=== PATIENT | female | born 1995 | race Caucasian/White ===

== ENCOUNTER 2017-06-11 10:21 | Emergency (ER) | payer OTHER ==
[~2017-06-11] VITALS: Wt 61.0 kg
[2017-06-11 11:01] LABS: URINE BLOOD (Dip) POC Negative (NEGATIVE)
[2017-06-11] MEDS ORDERED: CEPH-443 PO (11:15)
[2017-06-11] MEDS ORDERED: PHEN-538 PO (11:15)
--- NOTE | 2017-06-11 11:24 | ERD ---
ER Documentation Chief Complaint Date/Time DATE: 06/11/17 TIME: 11:17 Chief Complaint dysuria today HPI 21-year-old female presents with dysuria since this morning. She has a history of UTI in the past and it feels similar although she came in earlier today. She denies fevers, vomiting, flank pain. She has mild suprapubic pain. She denies any vaginal discharge and denies . ROS All systems reviewed and are negative except as per history of present illness. Medications Home Meds Active Scripts Phenazopyridine Hcl* (Pyridium*) 200 Mg Tab, 200 MG PO TID Y for URINARY PAIN, # 6 TAB Prov:BARRINGTON TINAJERO MD 06/11/17 Cephalexin* (Keflex*) 500 Mg Capsule, 500 MG PO QID for 5 Days, CAP Prov:BARRINGTON TINAJERO MD 06/11/17 Allergies Allergies: Coded Allergies: No Known Drug Allergy (Verified Allergy, Unknown, 11/29/15) PMhx/Soc History of Surgery: No Anesthesia Reaction: No Hx Neurological Disorder: No Hx Respiratory Disorders: No Hx Cardiac Disorders: No Hx Psychiatric Problems: No Hx Alcohol Use: Yes (WINE,BEER) Hx Substance Use: No Hx Tobacco Use: No Physical Exam Vitals Vital Signs Date Time Temp Pulse Resp B/P Pulse Ox O2 Delivery O2 Flow Rate FiO2 06/11/17 10:34 98.1 87 18 118/83 99 Physical Exam Const: [] Pleasant, [id number]. Head: Atraumatic Eyes: Normal Conjunctiva ENT: Normal External Ears, Nose and Mouth. Neck: Full range of motion..~ No meningismus. Resp: Clear to auscultation bilaterally Cardio: Regular rate and rhythm, no murmurs Abd: Soft, minimal suprapubic tenderness. No tenderness at McBurney's point no Rowley sign. No rebound. non distended. Normal bowel sounds Skin: No petechiae or rashes Back: No midline or flank tenderness Ext: No cyanosis, or edema Neur: Awake and alert Psych: Normal Mood and Affect Results 24 hrs Laboratory Tests Test 06/11/17 11:09 Bedside Urine pH (LAB) 7.0 Bedside Urine Protein (LAB) Negative Bedside Urine Glucose (UA) Negative Bedside Urine Ketones (LAB) Negative Bedside Urine Blood Negative Bedside Urine Nitrite (LAB) Negative Bedside Urine Leukocyte Esterase (L Trace Current Medications Medications (Trade) Dose Ordered Sig/Ivet Route PRN Reason Start Time Stop Time Status Last Admin Dose Admin Cephalexin (Keflex) 500 mg ONCE ONCE PO 06/11/17 11:30 06/11/17 11:31 UNV Phenazopyridine HCl (Pyridium) 200 mg ONCE ONCE PO 06/11/17 11:30 06/11/17 11:31 UNV Procedures/MDM HCG is negative and urine shows trace leukocytes. Patient was given Keflex 500 mg of mouth. Patient presents with dysuria since this morning with current signs or symptoms do not suggest PID, tubo-ovarian abscess, appendicitis, acute abdomen, appendicitis or sepsis. She will be treated with Keflex and instructions for fluids and observation and return precautions and primary care follow-up. The patient was stable with no new complaints during the ER course. Clinically, there is no current evidence to suggest meningitis, sepsis, acute abdomen, pneumonia, acute coronary syndrome, pulmonary embolism, or any other emergent condition appearing to require further evaluation or hospitalization. The patient should certainly return for any new or worsening symptoms per the aftercare instructions. They should otherwise follow-up with her primary care doctor for reevaluation this week. Departure Diagnosis: Primary Impression: Dysuria Condition: Stable Patient Instructions: Urinary Tract Infections in Women Additional Instructions: Shows mild infection. Drink plenty of fluids at home. Recheck for new or worsening symptoms or primary care doctor. BARRINGTON TINAJERO MD Jun 11, 2017 11:18
[2017-06-11] MEDS ORDERED: PHENAZOPYRIDINE 100 MG TAB PO ONE (11:30)
[2017-06-11] MEDS ORDERED: CEPHALEXIN 500 MG CAP PO ONE (11:30)
== END 2017-06-11 11:35 | disposition home or self-care (01) ==
LOC: FTE 10:21
DX: R30.0 Dysuria (principal)
CPT/HCPCS: 81003; Z7502; Z7610; 99283

== ENCOUNTER 2018-10-29 10:46 | Emergency (ER) | payer OTHER ==
[~2018-10-29] VITALS: Ht 165.1 cm; Wt 64.9 kg
[~2018-10-29 10:46] MED LIST: CEPH-443 PO; PHEN-538 PO
[2018-10-29 10:52] VITALS: BP 136/60; PULSE 80; RESP 18; Ht 165.1 cm; Wt 64.9 kg
[2018-10-29] MEDS ORDERED: SOD CHLORIDE 0.9% 1,000 ML IV STA (11:49)
[2018-10-29] MEDS ORDERED: ONDANSETRON 4 MG INJ IV STA (11:49)
[2018-10-29] MEDS ORDERED: ONDA4TAB14 PO (13:32)
--- NOTE | 2018-10-29 15:54 | ERD ---
ER Documentation Chief Complaint Chief Complaint vomiting, 11 weeks . HPI 23-year-old female presenting with vomiting this worsened over the last 3 days. Patient is 11 weeks and LNMP was August 10. She is been taking Zofran but states that her vomiting has increased. Denies any severe abdominal pain or cramping. Denies any vaginal bleeding. Next OB appointment is tomorrow at [facility]. . Denies other medical problems. NKDA. Surgical history denies. Social history denies ROS All systems reviewed and are negative except as per history of present illness. Medications Home Meds Active Scripts Ondansetron (Ondansetron Odt) 4 Mg Tab.rapdis, 4 MG PO Q6H PRN for NAUSEA AND/OR VOMITING, #10 TAB Prov:AIDA BISHOP PA-C 10/29/18 Phenazopyridine Hcl* (Pyridium*) 200 Mg Tab, 200 MG PO TID PRN for URINARY PAIN, #6 TAB Prov:BARRINGTON TINAJERO MD 06/11/17 Cephalexin* (Keflex*) 500 Mg Capsule, 500 MG PO QID for 5 Days, CAP Prov:BARRINGTON TINAJERO MD 06/11/17 Allergies Allergies: Coded Allergies: No Known Drug Allergy (Verified Allergy, Unknown, 11/29/15) PMhx/Soc Medical and Surgical Hx: pt denies Medical Hx, pt denies Surgical Hx History of Surgery: No Anesthesia Reaction: No Hx Neurological Disorder: No Hx Respiratory Disorders: No Hx Cardiac Disorders: No Hx Psychiatric Problems: No Hx Miscellaneous Medical Probl: Yes (preg 11 weeks) Hx Alcohol Use: No (quit august) Hx Substance Use: No Hx Tobacco Use: No Smoking Status: Never smoker FmHx Family History: No diabetes, No coronary disease, No other Physical Exam Vitals Vital Signs Date Temp Pulse Resp B/P (MAP) Pulse Ox O2 O2 Flow FiO2 Time Delivery Rate 10/29/18 98.0 80 18 136/60 98 10:52 (85) Physical Exam GENERAL: The patient is well-appearing, well-nourished, in no acute distress HEENT: Atraumatic. Conjunctivae are pink. Pupils equal, round, and reactive to light. There is no scleral icterus. Tympanic membranes clear bilaterally. Oropharynx clear. CHEST: Clear to auscultation bilaterally. There are no rales, wheezes or rhonchi. HEART: Regular rate and rhythm. No murmurs, clicks, rubs or gallops. ABDOMEN:Soft, nontender and nondistended. Good bowel sounds. No rebound or guarding. No gross peritonitis. No gross organomegaly or masses. Result Diagram: 10/29/18 1206 10/29/18 1206 Results 24 hrs Laboratory Tests Test 10/29/18 12:06 10/29/18 12:18 White Blood Count 7.8 10^3/ul Red Blood Count 4.49 10^6/ul Hemoglobin 13.7 g/dl Hematocrit 39.9 % Mean Corpuscular Volume 88.9 fl Mean Corpuscular Hemoglobin 30.5 pg Mean Corpuscular Hemoglobin Concent 34.3 g/dl Red Cell Distribution Width 12.1 % Platelet Count 235 10^3/UL Mean Platelet Volume 10.5 fl Immature Granulocytes % 0.300 % Neutrophils % 69.6 % Lymphocytes % 23.7 % Monocytes % 5.5 % Eosinophils % 0.4 % Basophils % 0.5 % Nucleated Red Blood Cells % 0.0 /100WBC Immature Granulocytes # 0.020 10^3/ul Neutrophils # 5.4 10^3/ul Lymphocytes # 1.8 10^3/ul Monocytes # 0.4 10^3/ul Eosinophils # 0.0 10^3/ul Basophils # 0.0 10^3/ul Nucleated Red Blood Cells # 0.0 10^3/ul Sodium Level 140 mmol/L Potassium Level 3.6 mmol/L Chloride Level 103 mmol/L Carbon Dioxide Level 28 mmol/L Anion Gap 9 Blood Urea Nitrogen 6 mg/dl Creatinine 0.52 mg/dl Est Glomerular Filtrat Rate mL/min > 60 mL/min Glucose Level 82 mg/dl Calcium Level 9.6 mg/dl Total Bilirubin 0.3 mg/dl Direct Bilirubin 0.00 mg/dl Indirect Bilirubin 0.3 mg/dl Aspartate Amino Transf (AST/SGOT) 20 IU/L Alanine Aminotransferase (ALT/SGPT) 12 IU/L Alkaline Phosphatase 64 IU/L Total Protein 7.9 g/dl Albumin 4.4 g/dl Globulin 3.50 g/dl Albumin/Globulin Ratio 1.25 Serum HCG, Qualitative POSITIVE Bedside Urine pH (LAB) 7.5 Bedside Urine Protein (LAB) 1+ Bedside Urine Glucose (UA) Negative Bedside Urine Ketones (LAB) 2+ Bedside Urine Blood Negative Bedside Urine Nitrite (LAB) Negative Bedside Urine Leukocyte Esterase (L Trace Current Medications Medications Dose Sig/Ivet Start Time Status Last (Trade) Ordered Route PRN Stop Time Admin Dose Reason Admin Sodium 1,000 ml @ Q1H STAT 10/29/18 DC 10/29/18 Chloride 1,000 mls/hr IV 11:49 12:08 10/29/18 12:48 Ondansetron 4 mg ONCE STAT 10/29/18 DC 10/29/18 HCl (Zofran IV 11:49 12:07 Inj) 10/29/18 11:50 Procedures/MDM ER course: 1 L normal saline given via IV and IV Zofran given. Patient is tolerating p.o.'s. Blood work within normal ranges. MDM: 23-year-old female presenting with vomiting. I will suspicion for dehydration. I have low suspicion for acute abdominal emergency. I have low suspicion for complication due to . Patient is discharged with supportive medications and told to follow-up with primary care within 1-2 days for close evaluation. Patient is told symptoms change or worsen to return immediately to the ER. All questions answered at discharge Departure Diagnosis: Primary Impression: Nausea and vomiting Condition: Stable Patient Instructions: Nausea and Vomiting-Adult Referrals: [facility] YOU HAVE RECEIVED A MEDICAL SCREENING EXAM AND THE RESULTS INDICATE THAT YOU DO NOT HAVE A CONDITION THAT REQUIRES URGENT TREATMENT IN THE EMERGENCY DEPARTMENT. FURTHER EVALUATION AND TREATMENT OF YOUR CONDITION CAN WAIT UNTIL YOU ARE SEEN IN YOUR DOCTORS OFFICE WITHIN THE NEXT 1-2 DAYS. IT IS YOUR RESPONSIBILITY TO MAKE AN APPOINTMENT FOR FOLOW-UP CARE. IF YOU HAVE A PRIMARY DOCTOR --you should call your primary doctor and schedule an appointment IF YOU DO NOT HAVE A PRIMARY DOCTOR YOU CAN CALL OUR PHYSICIAN REFERRAL HOTLINE AT IF YOU CAN NOT AFFORD TO SEE A PHYSICIAN YOU CAN CHOSE FROM THE FOLLOWING [facility] [address] [facility] [address] [facility] [address] [facility] [address] [facility]. [facility] [address] [facility]. [facility] [address] Additional Instructions: FOLLOW UP WITH YOUR PRIMARY CARE PHYSICIAN TOMORROW.Return to this facility if you are not improving as expected. AIDA BISHOP PA-C Oct 29, 2018 15:54
== END 2018-10-29 13:53 | disposition home or self-care (01) ==
LOC: FTE 10:46
DX: O21.9 Vomiting of pregnancy, unspecified (principal); Z3A.11 11 weeks gestation of pregnancy
CPT/HCPCS: 36415; 80053; 81003; 84703; 85025; 96374; J2405; J7030; Z7502

== ENCOUNTER 2018-11-21 09:39 | Emergency (ER) | payer OTHER ==
[~2018-11-21] VITALS: Ht 160 cm; Wt 63.9 kg
[~2018-11-21 09:39] MED LIST changes: +ONDA4TAB14 PO
[2018-11-21 09:41] VITALS: Ht 160 cm; Wt 63.9 kg
[2018-11-21] MEDS ORDERED: ONDANSETRON 4 MG INJ IV STA (09:57)
[2018-11-21] MEDS ORDERED: SOD CHLORIDE 0.9% 1,000 ML IV STA (09:57)
[2018-11-21] MEDS ORDERED: ONDA4TAB14 PO (10:42)
[2018-11-21 10:54] VITALS: BP 122/74; PULSE 87; RESP 18
--- NOTE | 2018-11-21 11:14 | ERD ---
ER Documentation Chief Complaint Chief Complaint VOMITTING ; BURNING PAIN EPIGASTRIC AREA; - LMP - 08/10/2018 HPI 23-year-old female presenting with vomiting and epigastric pain. Patient is about 14 weeks . LNMP August 10, 2018. A0. Denies any pelvic pain or bleeding. Patient is being seen by Dr. Palacio at [facility]. Denies medical problems. NKDA. Surgical history denies. Social histo ry denies ROS All systems reviewed and are negative except as per history of present illness. Medications Home Meds Active Scripts Ondansetron (Ondansetron Odt) 4 Mg Tab.rapdis, 4 MG PO Q6H PRN for NAUSEA AND/OR VOMITING, #10 TAB Prov:AIDA BISHOP PA-C 11/21/18 Ondansetron (Ondansetron Odt) 4 Mg Tab.rapdis, 4 MG PO Q6H PRN for NAUSEA AND/OR VOMITING, #10 TAB Prov:AIDA BISHOP PA-C 10/29/18 Phenazopyridine Hcl* (Pyridium*) 200 Mg Tab, 200 MG PO TID PRN for URINARY PAIN, #6 TAB Prov:BARRINGTON TINAJERO MD 06/11/17 Cephalexin* (Keflex*) 500 Mg Capsule, 500 MG PO QID for 5 Days, CAP Prov:BARRINGTON TINAJERO MD 06/11/17 Allergies Allergies: Coded Allergies: No Known Drug Allergy (Verified Allergy, Unknown, 11/21/18) PMhx/Soc History of Surgery: No Anesthesia Reaction: No Hx Neurological Disorder: No Hx Respiratory Disorders: No Hx Cardiac Disorders: No Hx Psychiatric Problems: No Hx Miscellaneous Medical Probl: No Hx Alcohol Use: Yes (quit august) Hx Substance Use: No Hx Tobacco Use: No Smoking Status: Never smoker FmHx Family History: No diabetes, No coronary disease, No other Physical Exam Vitals Vital Signs Date Temp Pulse Resp B/P (MAP) Pulse Ox O2 O2 Flow FiO2 Time Delivery Rate 11/21/18 98.0 87 18 122/74 98 Room Air 10:54 (90) 11/21/18 98.0 98 18 128/83 96 09:41 (98) Physical Exam GENERAL: The patient is well-appearing, well-nourished, in no acute distress HEENT: Atraumatic. Conjunctivae are pink. Pupils equal, round, and reactive to light. There is no scleral icterus. Tympanic membranes clear bilaterally. Oropharynx clear. NECK: C-spine is soft and supple. There is no meningismus. There is no cervical lymphadenopathy. CHEST: Clear to auscultation bilaterally. There are no rales, wheezes or rhonchi. HEART: Regular rate and rhythm. No murmurs, clicks, rubs or gallops. ABDOMEN: Normal active bowel sounds. No distention. No organomegaly. Mild tenderness palpation in the epigastric region. No rebound tenderness. Result Diagram: 11/21/18 1005 11/21/18 1005 Results 24 hrs Laboratory Tests Test 11/21/18 10:00 11/21/18 10:05 Urine Color YELLOW Urine Clarity HAZY Urine pH 5.0 Urine Specific [place] 1.030 Urine Ketones 2+ mg/dL Urine Nitrite NEGATIVE mg/dL Urine Bilirubin 1+ mg/dL Urine Urobilinogen 0.2 E.U./dL mg/dL Urine Leukocyte Esterase NEGATIVE Radha/ul Urine Hemoglobin NEGATIVE mg/dL Urine Glucose NEGATIVE mg/dL Urine Total Protein NEGATIVE mg/dl White Blood Count 9.8 10^3/ul Red Blood Count 4.33 10^6/ul Hemoglobin 13.1 g/dl Hematocrit 38.7 % Mean Corpuscular Volume 89.4 fl Mean Corpuscular Hemoglobin 30.3 pg Mean Corpuscular Hemoglobin Concent 33.9 g/dl Red Cell Distribution Width 12.4 % Platelet Count 220 10^3/UL Mean Platelet Volume 10.4 fl Immature Granulocytes % 0.400 % Neutrophils % 78.4 % Lymphocytes % 16.0 % Monocytes % 4.5 % Eosinophils % 0.4 % Basophils % 0.3 % Nucleated Red Blood Cells % 0.0 /100WBC Immature Granulocytes # 0.040 10^3/ul Neutrophils # 7.6 10^3/ul Lymphocytes # 1.6 10^3/ul Monocytes # 0.4 10^3/ul Eosinophils # 0.0 10^3/ul Basophils # 0.0 10^3/ul Nucleated Red Blood Cells # 0.0 10^3/ul Sodium Level 141 mmol/L Potassium Level 3.7 mmol/L Chloride Level 106 mmol/L Carbon Dioxide Level 24 mmol/L Anion Gap 11 Blood Urea Nitrogen 7 mg/dl Creatinine 0.56 mg/dl Est Glomerular Filtrat Rate mL/min > 60 mL/min Glucose Level 81 mg/dl Calcium Level 9.6 mg/dl Total Bilirubin 0.5 mg/dl Direct Bilirubin 0.00 mg/dl Indirect Bilirubin 0.5 mg/dl Aspartate Amino Transf (AST/SGOT) 19 IU/L Alanine Aminotransferase (ALT/SGPT) 17 IU/L Alkaline Phosphatase 66 IU/L Total Protein 7.4 g/dl Albumin 4.2 g/dl Globulin 3.20 g/dl Albumin/Globulin Ratio 1.31 Lipase 81 U/L Current Medications Medications Dose Sig/Ivet Start Time Status Last (Trade) Ordered Route PRN Stop Time Admin Dose Reason Admin Sodium 1,000 ml @ Q1H STAT 11/21/18 DC 11/21/18 Chloride 1,000 mls/hr IV 09:57 10:14 11/21/18 10:56 Ondansetron 4 mg ONCE STAT 11/21/18 DC 11/21/18 HCl (Zofran IV 09:57 10:13 Inj) 11/21/18 09:59 Procedures/MDM DIAGNOSTIC IMAGING REPORT Patient: ANA LAURA UMANA : 1995 Age: 23 Sex: F MR #: [id number] DOS: 11/21/18 0957 Ordering MD: BECKIE BISHOP PA-C Location: [facility] Room/Bed: PROCEDURE: US LIMITED ABDOMEN RIGHT UPPER QUADRANT CLINICAL INDICATION: Abdominal pain TECHNIQUE: Multiple real-time images were acquired of the patient's right upper quadrant utilizing a high resolution transducer. COMPARISON: None FINDINGS: The pancreas appears to be within normal limits. The aorta and IVC are within normal limits. Hepatic morphology is within limits. There is normal homogeneous echotexture of the liver. The liver measures 12.7 cm in length. There is normal hepatic pedal flow of the portal vein. The gallbladder is visualized. No evidence of gallstones. No evidence of gallbladder wall thickening. The common bile duct is with normal limits measuring 2.2 mm. The right kidney measures 9.7 cm. The cortex and parenchymal with normal limits. No evidence of obstruction or hydronephrosis. IMPRESSION: 1. No evidence of gallstones. Gallbladder and common bile duct are within normal limits. 2. Unremarkable right upper quadrant ultrasound of the abdomen. If clinical symptoms persist, consider follow-up CT scan of the abdomen/pelvis. ER Course: Zofran and Tylenol given ED. MDM: 23-year-old female presenting with vomiting. Patient blood work does not show signs of dehydration. Patient vitals are stable and patient is well- appearing. I have low suspicion for choledocholithiasis, cholecystitis or chol angitis. I have low suspicion for pancreatitis. I have low suspicion for complication with . Patient is discharged with supportive medications and told to follow-up with primary care within 1-2 days for close evaluation. Patient is told if symptoms change or worsen to return the ER immediately. All questions answered at discharge Departure Diagnosis: Primary Impression: Epigastric pain Additional Impression: Vomiting Condition: Stable Patient Instructions: Vomiting (6Y-Adult), Epigastric Pain (Uncertain Cause) Referrals: [facility] YOU HAVE RECEIVED A MEDICAL SCREENING EXAM AND THE RESULTS INDICATE THAT YOU DO NOT HAVE A CONDITION THAT REQUIRES URGENT TREATMENT IN THE EMERGENCY DEPARTMENT. FURTHER EVALUATION AND TREATMENT OF YOUR CONDITION CAN WAIT UNTIL YOU ARE SEEN IN YOUR DOCTORS OFFICE WITHIN THE NEXT 1-2 DAYS. IT IS YOUR RESPONSIBILITY TO MAKE AN APPOINTMENT FOR FOLOW-UP CARE. IF YOU HAVE A PRIMARY DOCTOR --you should call your primary doctor and schedule an appointment IF YOU DO NOT HAVE A PRIMARY DOCTOR YOU CAN CALL OUR PHYSICIAN REFERRAL HOTLINE AT IF YOU CAN NOT AFFORD TO SEE A PHYSICIAN YOU CAN CHOSE FROM THE FOLLOWING [facility] [address] [facility]. [facility] [address] [facility] [address] [facility] [facility] [address] [facility]. [facility] [address] [facility]. [facility]. [address] Additional Instructions: FOLLOW UP WITH YOUR PRIMARY CARE PHYSICIAN TOMORROW.Return to this facility if you are not improving as expected. AIDA BISHOP PA-C Nov 21, 2018 11:14
== END 2018-11-21 10:54 | disposition home or self-care (01) ==
LOC: FTE 09:39
DX: O26.892 Other specified pregnancy related conditions, second trimester (principal); R10.13 Epigastric pain; O21.9 Vomiting of pregnancy, unspecified; Z3A.14 14 weeks gestation of pregnancy
CPT/HCPCS: 76705; 80053; 81003; 83690; 85025; J2405; J7030; 36415; 96361; 96374